=== PATIENT | male | born 1975 | race Caucasian/White ===

== ENCOUNTER → 2018-01-09 07:36 | Outpatient (CLI) | payer OTHER, SELFPAY ==
[2018-01-09 10:42] LABS: Microalbumin,Random Urine 9.4 mg/L (NO RANGE EST.)
[2018-01-09 10:45] LABS: Hemoglobin A1c 9.1 % (4.2-6.3)
[2018-01-09 10:58] LABS: AST(SGOT) 21 U/L (15-37); Alanine Aminotransfer ALT/SGPT 32 U/L (16-61); Albumin, Serum 3.6 g/dL (3.2-5.0); Alkaline Phosphatase 101 U/L (45-117); Anion Gap 6 (5-15); BUN 11 mg/dL (7-18); BUN/Creat Ratio 14.2 RATIO (10-20); Calcium,Total 8.9 mg/dL (8.5-10.1); Chloride 102 mmol/L (98-107); Cholesterol 171 mg/dL (200); Creatinine, Serum 0.77 mg/dL (0.70-1.30); EST Glomerular Filtration Rate 116 mL/min (>60); Est Glom Filt Rate - Afr Amer 141 mL/min (>60); Globulin 3.7 g/dL (2.2-4.2); Glucose 234 mg/dL (74-106); High Density Lipoprotein 29 mg/dL; Protein, Total 7.3 g/dL (6.4-8.2); Sodium Level 137 mmol/L (136-145); Triglycerides 122 mg/dL; Very Low Density Lipoprotein 24 mg/dL (5-40)
== END ==
PROVIDERS: Visit Provider Nurse Practitioner
DX: E10.9 Type 1 diabetes mellitus without complications (principal)
CPT/HCPCS: 36415; 80053; 80061; 82043; 82570; 83036

== ENCOUNTER 2018-09-09 17:39 | Emergency (ER) | payer OTHER, SELFPAY ==
[2018-09-09 17:41] VITALS: BP 125/73; PULSE 71; RESP 16; TEMP 36.3; O2SAT 100; BMI 25.0
[2018-09-09] MEDS: Meclizine HCl 25 MG Tablet PO (18:21)
[2018-09-09] MEDS: diazePAM 5 MG Tablet PO (18:21)
--- NOTE | 2018-09-09 19:07 | ED.VISSUMM ---
- ER Visit Summary Date of Service: 09/09/18 Chief Complaint: Dizziness History of Present Illness: The patient is a 42 M presenting for evaluation secondary dizziness. Patient had a sudden onset of vertigo today. 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 He waited for a moment the feeling seemed to pass, and when he lied back down he had a sudden onset of the symptoms again. Physical Examination: Vital signs within normal limits. Well-nourished male no acute distress. Moist mucous membranes. PRL, EOMI no evidence of resting nystagmus. No mastoid tenderness to palpation. Neck was supple no carotid bruits. Heart regular rate and rhythm lungs clear. Abdomen soft nontender. Normal peripheral pulses. NIH stroke scale is 0. Patient is alert and oriented x4 normal strength sensation reflexes and cerebellar testing. Positive [place]-Hallpike maneuver to the right, negative truncal ataxia Test Results: None indicated Emergency Department Course and Treatment: Patient presented with sudden onset sudden offset dizziness. This seems likely to be peripheral. Patient was given meclizine and Valium and did have some improvement. I offered to perform the EPELY maneuver which the patient declined at this time. Patient will be discharged with instructions on how to perform this, Valium, and meclizine. Disposition: Discharge Impression: 1. Right-sided BPPV This note was generated with [employer] dictation software. It may contain incorrect words, spelling, and punctuation that were not noted in review of the chart prior to signing ED Disposition - Plan for ED Patient: Disposition: Home or Assisted Living Chief Complaint: Dizziness Diagnosis: Benign paroxysmal positional vertigo of right ear Instructions: ED BPV Vertigo Prescriptions: Diazepam [Valium] 5 mg PO Q8 PRN #10 tab PRN Reason: Muscle Spasm Meclizine HCl 25 mg PO TID #12 tab Referrals: Rasheed Rodriguez MD [STAFF PHYSICIAN] -
--- NOTE | 2018-09-09 19:13 | ED.DCSUM_ITS ---
- ER Visit Summary Date of Service: 09/09/18 Chief Complaint: Dizziness History of Present Illness: The patient is a 42 M presenting for evaluation secondary dizziness. Patient had a sudden onset of vertigo today. 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 He waited for a moment the feeling seemed to pass, and when he lied back down he had a sudden onset of the symptoms again. Physical Examination: Vital signs within normal limits. Well-nourished male no acute distress. Moist mucous membranes. PRL, EOMI no evidence of resting nystagmus. No mastoid tenderness to palpation. Neck was supple no carotid bruits. Heart regular rate and rhythm lungs clear. Abdomen soft nontender. Normal peripheral pulses. NIH stroke scale is 0. Patient is alert and oriented x4 normal strength sensation reflexes and cerebellar testing. Positive [place]- Hallpike maneuver to the right, negative truncal ataxia Test Results: None indicated Emergency Department Course and Treatment: Patient presented with sudden onset sudden offset dizziness. This seems likely to be peripheral. Patient was given meclizine and Valium and did have some improvement. I offered to perform the EPELY maneuver which the patient declined at this time. Patient will be discharged with instructions on how to perform this, Valium, and meclizine. Disposition: Discharge Impression: 1. Right-sided BPPV This note was generated with [employer] dictation software. It may contain incorrect words, spelling, and punctuation that were not noted in review of the chart prior to signing ED Disposition - Plan for ED Patient: Disposition: Home or Assisted Living Chief Complaint: Dizziness Diagnosis: Benign paroxysmal positional vertigo of right ear Instructions: ED BPV Vertigo Prescriptions: Diazepam [Valium] 5 mg PO Q8 PRN #10 tab PRN Reason: Muscle Spasm Meclizine HCl 25 mg PO TID #12 tab Referrals: Rasheed Rodriguez MD [STAFF PHYSICIAN] -
[2018-09-09] MEDS: Ondansetron ODT 4 MG Tablet PO (19:25)
[2018-09-09 19:26] VITALS: BP 132/86; PULSE 77; RESP 20; O2SAT 96
== END 2018-09-09 19:27 | disposition home or self-care (01) ==
PROVIDERS: Emergency Provider Emergency Medicine; Family Provider Nurse Practitioner; PCP Nurse Practitioner
DX: H81.11 Benign paroxysmal vertigo, right ear (principal); E11.9 Type 2 diabetes mellitus without complications; Z79.4 Long term (current) use of insulin; F17.220 Nicotine dependence, chewing tobacco, uncomplicated
CPT/HCPCS: 99283